=== PATIENT | female | born 1970 | race Caucasian/White ===

== ENCOUNTER → 2017-08-03 | Outpatient (CLI) | payer OTHER ==
[~2017-08-03] MED LIST: ACET-1718 PO; ACET-1935; ASCO-182 PO; ASCO-188 PO; ASCO-191 PO; AZIT-1 PO; AZIT500T47 PO; CALC-852 PO; CET10 PO; CETI-459; DIPH0.5D12 IM; DIV500 PO; ESTR-33 PO; ESTR0.5T16; FLU150 PO; FLUT16SP20 NS; GLUC-180 PO; GRAN1TAB PO; GUAI600T57 PO; HYDR-2946 PO; IPRA3AMP36 IH; LEV88 PO; LEVO-3 PO; LEVO-317 PO; LEVO500T PO; LEVO5TAB28 PO; MULT-976 PO; PRED-314 PO; SERT-177 PO; TIZ4 PO; TIZA-1 PO; TIZA-128 PO; TRA50 PO; TRAM-420 PO; ZOLP-350 PO; [UNRECOGNIZED DRUG - CODE] PO
--- NOTE | 2017-08-03 15:18 | RADIOLOGY IMAGING REPORT ---
FACILITY: [facility] [place] PATIENT NAME: Emili Clemons : 1970 MR: [id number] V: [id number] EXAM DATE: ORDERING PHYSICIAN: ANA PIERCE TECHNOLOGIST: Location: [facility] - [place], [place] Patient: Emili Clemons : 1970 Visit/Account:[id number] Date of Sevice: 08/03/2017 EXAMINATION: CT of the Paranasal Sinuses HISTORY: Recurrent sinus infections TECHNIQUE: CT was performed through the paranasal sinuses without intravenous contrast administratio n. Coronal and sagittal reformatted images were generated. One of the following dose optimization techniques was utilized in the performance of this exam: autom ated exposure control; adjustment of the mA and/or kV according to patient size; or use of iterative reconstruction technique. Specific details can be referenced in the facility's radiology CT exam ope rational policy. COMPARISON: CT 07/04/2012 FINDINGS: Clear mastoid air cells and middle ear cavities. 2 new left maxillary sinus mucous retention cysts the largest measuring 7 mm. Mild leftward upper and mild rightward lower nasal septum deviation. Patent infundibula. No nasal cav ity polyps. Normal temporomandibular joints. Expansile periapical lucency surrounding the posterior most left maxilla molar tooth has increased in size. This measures 1 cm craniocaudad by 1.2 cm transverse and protrudes into the inferior aspect of the left maxillary sinus cavity. Medial maxillary cortical erosion adjacent to this finding is new. Additional smaller periapical lucency surrounds an additional root of this tooth which has increased in size. Mild left inferior maxillary sinus mucosal thickening just superior to this finding has decr eased. A focal area of apparent inferior maxillary sinus cortical erosion/absence is noted adjacent t o this periapical lucency, coronal image 46 which is new. There has been removal of a posterior left maxilla molar compared to prior. The visible extracranial and intracranial structures are normal. IMPRESSION: 1. 1 x 1.2 cm expansile periapical lucency surrounding the posterior most left maxilla molar tooth marvin s increased in size. New small cortical erosions along the medial maxillary cortex and along the infe rior maxillary sinus floor adjacent to this finding. These findings are in keeping with chronic dent al disease. Mild inferior left maxillary sinus mucosal thickening adjacent to these findings has decreased. 2. Small new left maxillary sinus mucous retention cysts. Report Dictated By: Greg Grande MD at 08/03/2017 2:55 PM Report E-Signed By: Greg Grande MD at 08/03/2017 3:13 PM WSN:[id number]
== END ==
LOC: CT 01:06
PROVIDERS: ATTEND Nurse Practitioner Family
DX: K08.89 Other specified disorders of teeth and supporting structures (principal); J34.1 Cyst and mucocele of nose and nasal sinus; J34.2 Deviated nasal septum
CPT/HCPCS: 70486

== ENCOUNTER → 2018-09-11 | Outpatient (CLI) | payer OTHER ==
[~2018-09-11] MED LIST changes: +MELO-207 PO
== END ==
LOC: LAB 16:46
PROVIDERS: ATTEND Nurse Practitioner Family
DX: E03.9 Hypothyroidism, unspecified (principal)
CPT/HCPCS: 36415; 84439; 84443

== ENCOUNTER → 2018-10-12 | Outpatient (CLI) | payer OTHER ==
--- NOTE | 2018-10-23 09:45 | RADIOLOGY IMAGING REPORT ---
FACILITY: [facility] PATIENT NAME: SRUTHI CHIN : [id number] MR: [id number] V: [id number] EXAM DATE: ORDERING PHYSICIAN: RAD WARD TECHNOLOGIST: Odessa Alfred PROCEDURE:BILATERAL DIGITAL SCREENING MAMMOGRAM WITH CAD ASSISTED INTERPRETATION & 3D TOMOSYNTHESIS COMPARISON:Prior mammograms 10/06/16, 09/24/16. INDICATIONS:screening FINDINGS: The breasts are heterogeneously dense which can obscure small masses. The parenchymal pattern has remained stable allowing for difference in mammographic technique & patient positioning. DIAGNOSTIC CATEGORY 1--NEGATIVE. RECOMMENDATIONS: ROUTINE MAMMOGRAM AND CLINICAL EVALUATION. IMPRESSION: BIRADS 1: Negative. No significant abnormality is seen. Dictated by: Kayla Sandoval M.D. on 10/12/2018 at 15:56 Transcribed by: CYNTHIA on 10/13/2018 at 8:03 Approved by: Kayla Sandoval M.D. on 10/23/2018 at 9:44 [facility]
== END ==
LOC: MAMO 00:23
PROVIDERS: ATTEND Nurse Practitioner Family
DX: Z12.31 Encounter for screening mammogram for malignant neoplasm of breast (principal)
CPT/HCPCS: 77063; 77067

== ENCOUNTER 2018-12-30 11:21 | Emergency (ER) | payer OTHER ==
[~2018-12-30 11:21] MED LIST changes: -DIPH0.5D12 IM; +DIPH0.5S2 IM
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
[2018-12-30] MEDS ORDERED: ONDANSETRON 4 MG/2 ML VIAL IVP ONE ×2 (11:45→12:55)
[2018-12-30] MEDS ORDERED: MORPHINE 4 MG/ML SDV IVP ONE (11:45)
[2018-12-30] MEDS ORDERED: fentaNYL CITR 100 MCG/2 ML AMP IVP ONE ×2 (12:55→14:10)
[2018-12-30] MEDS ORDERED: PROPOFOL EMUL 10MG/ML 20 ML VL IV ONE (12:55)
--- NOTE | 2018-12-30 13:03 | RADIOLOGY IMAGING REPORT ---
FACILITY: [facility] PATIENT NAME: Emili Branch : 1970 MR: [id number] V: [id number] EXAM DATE: ORDERING PHYSICIAN: MALLIKA FRANCO TECHNOLOGIST: Location: [facility] Patient: Emili Branch : 1970 Visit/Account:[id number] Date of Sevice: 12/30/2018 Exam type: XR WRIST 3 OR MORE VIEWS RT History: fall Comparison: None. Findings: There is a comminuted fracture of the distal right radius involving the radiocarpal joint distal radi oulnar joint. Displaced fragment is noted in the radial direction. The carpus follows the displaced fragment in a dorsal direction. Avulsion fracture of the ulnar styloid process is noted. IMPRESSION: 1. Comminuted and displaced fracture of the distal right radius involving radiocarpal joint and dist al radioulnar joint. 2. Ulnar styloid process fracture. Report Dictated By: Jerry Stafford MD at 12/30/2018 12:56 PM Report E-Signed By: Jerry Stafford MD at 12/30/2018 12:59 PM WSN:[id number]
[2018-12-30] MEDS ORDERED: NS(*) 0.9% 1000 ML BAG 1,000 ML IV ONE (13:15)
[2018-12-30 13:35] VITALS: BP 115/80
[2018-12-30] MEDS ORDERED: oxyCODON/ACET (*)5/325MG (CII) 1 TAB TAB PO ONE (14:10)
--- NOTE | 2018-12-30 14:21 | RADIOLOGY IMAGING REPORT ---
FACILITY: [facility] [place] PATIENT NAME: Emili Branch : 1970 MR: [id number] V: [id number] EXAM DATE: ORDERING PHYSICIAN: MALLIKA FRANCO TECHNOLOGIST: Location: [facility] Patient: Emili Branch : 1970 Visit/Account:[id number] Date of Sevice: 12/30/2018 CT of the right wrist Indication: Distal radius fracture. Further characterize. Comparison: Plain films from earlier today are reviewed. Technique: Axial CT images were obtained through the right wrist. Reformatted coronal and sagittal im ages were reviewed. One of the following dose optimization techniques was utilized in the performance of this exam: Autom ated exposure control; adjustment of the mA and/or kV according to the patient's size; or use of an i terative reconstruction technique. Specific details can be referenced in the facility's radiology C T exam operational policy. Findings: In keeping with today's plain films, there is a markedly comminuted fracture of the distal right radi al metaphysis. Multiple fracture lines and multiple fracture fragments are identified. The dominant f racture line is a coronally oriented fracture line through the metaphysis which extends into the radi ocarpal joint. This results in a dominant dorsal and volar fracture fragments. The volar component is markedly comminuted and the volar component is displaced volarly. There is abnormal alignment at the radiocarpal joint with volar subluxation of the carpus with respect to the distal radius articular s urface. The carpus remains aligned with the volar fragments. There is abnormal impaction of the volar fracture fragments with respect to the dorsal fragments. There is depression at the articular surfac e which measures up to 4 mm. Multiple punch fracture fragments involving the volar articular surf haile. Due to the volar displacement, there is a fracture gap at the articular surface which measures u p to 15 mm when viewed in the sagittal plane. There is a transverse fracture line with extension into the distal radioulnar joint as well. There is a minimally displaced tip of ulnar styloid fracture. No carpal fracture seen. Slight widening is suggested scapholunate joint. Remaining carpal joints clark ear normal. Metacarpals appear unremarkable as do the metacarpophalangeal joints. There is extensive soft tissue edema present about the wrist. IMPRESSION: 1. Markedly comminuted intra-articular fracture of the distal right radial metaphysis with volar subl uxation of the carpus with respect to the distal radius articular surface. As above, the carpus remai ns aligned with the impacted, volarly displaced and markedly comminuted volar aspect of the distal ra dius articular surface. Multiple punch fracture fragments are seen with depression at the articul ar surface. See full description above. 2. Minimally displaced tip of ulnar styloid fracture. 3. Slight widening of the scapholunate joint suggesting ligamentous instability. 4. Soft tissue swelling. Report Dictated By: Soham Winston at 12/30/2018 2:03 PM Report E-Signed By: Soham Winston at 12/30/2018 2:18 PM WSN:[id number]
[2018-12-30] MEDS ORDERED: KETOROLAC 30 MG/ML VIAL IVP ONE (14:45)
[2018-12-30] MEDS ORDERED: KET10 PO (15:13)
[2018-12-30] MEDS ORDERED: OXYC-865 PO (15:13)
[2018-12-30] MEDS ORDERED: ONDA4TAB9 PO (15:13)
== END 2018-12-30 15:35 | disposition home or self-care (01) ==
LOC: ER 11:24
DX: S59.201A Unspecified physeal fracture of lower end of radius, right arm, initial encounter for closed fracture (principal); S52.614A Nondisplaced fracture of right ulna styloid process, initial encounter for closed fracture; V18.4XXA Pedal cycle driver injured in noncollision transport accident in traffic accident, initial encounter
CPT/HCPCS: 25605; 73110; 73200; 96361; 96374; 96375; 96376; 99156; 99285; J1885; J2270; J2405; J2704; J3010; J7030

== ENCOUNTER → 2019-02-15 | Outpatient (CLI) | payer OTHER ==
[~2019-02-15] MED LIST changes: +KET10 PO; +ONDA4TAB9 PO; +OXYC-865 PO
[2019-02-15 16:12] LABS: PLATELET COUNT, AUTOMATED 271 K/uL (150-450)
== END ==
LOC: LAB 15:43
PROVIDERS: ATTEND Nurse Practitioner Family
DX: K92.1 Melena (principal); E03.9 Hypothyroidism, unspecified
CPT/HCPCS: 36415; 84443; 85025